=== PATIENT | female | born 1995 | race Caucasian/White ===

== ENCOUNTER 2019-04-06 08:48 | Outpatient (CLI) | payer OTHER ==
--- NOTE | 2019-04-06 09:14 | ULT ---
US Gallbladder RUQ History: Right upper quadrant pain. Epigastric pain Comparison: None. Findings: Real-time grayscale and color evaluation of the right upper quadrant of the abdomen was per formed. Vicious portion of the aorta, IVC, and pancreas are unremarkable. Hepatic echotexture is normal. Live r measures 15.6 cm in length. Portal vein is patent with antegrade flow. The right kidney measures 10.8 x 3.7 x 5 cm without mass, hydronephrosis, or abnormal calcifications. Bladder is normal. No pericholecystic fluid. No dilatation of the common bile duct. Impression: Normal right upper quadrant ultrasound.
== END 2019-04-06 08:49 | disposition home or self-care (01) ==
LOC: SCSULT 08:48
PROVIDERS: ATTEND Internal Medicine
DX: K52.9 Noninfective gastroenteritis and colitis, unspecified (principal); R10.13 Epigastric pain
CPT/HCPCS: 76705